=== PATIENT | female | born 1955 | race Caucasian/White ===

== ENCOUNTER → 2023-11-02 06:37 | Outpatient (REF) | payer OTHER, SELFPAY ==
[2023-11-02 10:18] LABS: INR 2.42; PT 26.8 Sec (11.4-14.6)
== END ==
LOC: HWLAB 06:37
PROVIDERS: ATTENDING PHYSICIAN Internal Medicine Cardiovascular Disease; FAMILY PHYSICIAN Family Medicine
DX: I48.0 Paroxysmal atrial fibrillation (principal); Z95.2 Presence of prosthetic heart valve
CPT/HCPCS: 36415; 85610

== ENCOUNTER → 2023-11-23 07:00 | Outpatient (REF) | payer OTHER, SELFPAY ==
[2023-11-23 09:10] LABS: INR 4.09; PT 39.7 Sec (11.4-14.6)
== END ==
LOC: HWLAB 07:00
PROVIDERS: ATTENDING PHYSICIAN Internal Medicine Cardiovascular Disease; FAMILY PHYSICIAN Family Medicine
DX: I48.0 Paroxysmal atrial fibrillation (principal)
CPT/HCPCS: 36415; 85610

== ENCOUNTER → 2023-12-01 06:13 | Outpatient (REF) | payer OTHER, SELFPAY ==
[2023-12-01 09:29] LABS: % Basophils 1.6 % (0-2); % Eosinophils 3.4 % (0-6); % Lymphocytes 34.2 % (20.5-51.1); % Monocytes 11.9 % (1.7-9.3); % Neutrophils 48.9 % (42.2-75.2); Absolute Basophils 0.1 10^3/uL (0-0.2); Absolute Eosinophils 0.2 10^3/uL (0-0.7); Absolute Lymphocytes 1.9 10^3/uL (1.2-3.4); Absolute Monocytes 0.7 10^3/uL (0.1-0.6); Absolute Neutrophils 2.8 10^3/uL (1.4-6.5); Hematocrit 38.1 % (37.0-47.0); Hemoglobin 13.1 g/dL (12.0-16.0); Mean Corp Hgb Conc. 34.4 g/dL (33.0-37.0); Mean Corpuscular Hgb 29.7 pg (27.0-31.0); Mean Corpuscular Volume 86.4 fL (81.0-99.0); Nucleated Red Blood Cells % 0 %; Platelet Count 239 10^3/uL (130-400); Red Blood Cell Count 4.41 10^6/uL (4.20-5.40); Red Cell Dist. Width 13.4 % (11.5-14.5); White Blood Cell Count 5.7 10^3/uL (4.8-10.8)
[2023-12-01 10:22] LABS: Albumin 3.6 g/dl (3.5-5.0); Blood Urea Nitrogen 15 mg/dl (7-17); Carbon Dioxide 30 mmol/L (22-30); Chloride 104 mmol/L (98-107); Glucose 117 mg/dl (70-99); HDL Cholesterol 48 mg/dl; LDL Cholesterol, Calculated 104 mg/dl; Potassium 3.7 mmol/L (3.5-5.1); Sodium 140 mmol/L (135-145); Total Cholesterol 185 mg/dl (50-199); Triglyceride 167 mg/dl (10-149); Very Low Density Lipoprotein 33 mg/dl (0-30); eGFR > 60.00
== END ==
LOC: HWLAB 06:13
PROVIDERS: ATTENDING PHYSICIAN Internal Medicine Cardiovascular Disease; FAMILY PHYSICIAN Family Medicine
DX: Z95.0 Presence of cardiac pacemaker (principal); E78.2 Mixed hyperlipidemia
CPT/HCPCS: 36415; 80061; 80069; 85025

== ENCOUNTER → 2023-12-06 06:28 | Day surgery (SDC) | payer OTHER, SELFPAY | LOC: GI 06:28 | PROVIDERS: ATTENDING PHYSICIAN Internal Medicine Gastroenterology; FAMILY PHYSICIAN Family Medicine | DX: R19.5 Other fecal abnormalities (principal); Z12.11 Encounter for screening for malignant neoplasm of colon; K55.20 Angiodysplasia of colon without hemorrhage; K63.5 Polyp of colon; D12.2 Benign neoplasm of ascending colon; D12.3 Benign neoplasm of transverse colon | CPT/HCPCS: 45385; 45380; 88305 ==

== ENCOUNTER → 2023-12-08 12:05 | Outpatient (REF) | payer OTHER, SELFPAY ==
[2023-12-08 13:22] LABS: INR 1.47; PT 17.9 Sec (11.4-14.6)
[2023-12-08 13:55] LABS: ALT (SGPT) 50 U/L (0-35); AST (SGOT) 52 U/L (14-36)
== END ==
LOC: REG 12:05
PROVIDERS: ATTENDING PHYSICIAN Internal Medicine Cardiovascular Disease; FAMILY PHYSICIAN Family Medicine
DX: I48.0 Paroxysmal atrial fibrillation (principal); E78.2 Mixed hyperlipidemia
CPT/HCPCS: 36415; 84450; 84460; 85610

== ENCOUNTER → 2023-12-10 13:10 | Outpatient (REF) | payer OTHER, SELFPAY ==
[2023-12-10 14:19] LABS: INR 1.71; PT 19.9 Sec (11.4-14.6)
== END ==
LOC: REG 13:10
PROVIDERS: ATTENDING PHYSICIAN Internal Medicine Cardiovascular Disease
DX: Z95.2 Presence of prosthetic heart valve (principal)
CPT/HCPCS: 36415; 85610

== ENCOUNTER → 2023-12-13 13:18 | Outpatient (REF) | payer OTHER, SELFPAY ==
[2023-12-13 16:37] LABS: INR 2.86; PT 29.9 Sec (11.4-14.6)
== END ==
LOC: HWLAB 13:18
PROVIDERS: ATTENDING PHYSICIAN Internal Medicine Cardiovascular Disease; FAMILY PHYSICIAN Family Medicine
DX: I48.0 Paroxysmal atrial fibrillation (principal)
CPT/HCPCS: 36415; 85610

== ENCOUNTER → 2023-12-20 10:06 | Outpatient (REF) | payer OTHER, SELFPAY ==
[2023-12-20 11:41] LABS: INR 3.13; PT 32.1 Sec (11.4-14.6)
== END ==
LOC: REG 10:06
PROVIDERS: ATTENDING PHYSICIAN Internal Medicine Cardiovascular Disease; FAMILY PHYSICIAN Family Medicine
DX: I48.0 Paroxysmal atrial fibrillation (principal)
CPT/HCPCS: 36415; 85610

== ENCOUNTER → 2023-12-20 14:34 | Outpatient (REF) | payer OTHER, SELFPAY | LOC: RAD 14:34 | PROVIDERS: ATTENDING PHYSICIAN Family Medicine; FAMILY PHYSICIAN Family Medicine | DX: R58 Hemorrhage, not elsewhere classified (principal) | CPT/HCPCS: 93971 ==

== ENCOUNTER → 2023-12-29 11:14 | Outpatient (REF) | payer OTHER, SELFPAY ==
[2023-12-29 16:30] LABS: INR 3.01; PT 31.6 Sec (11.4-14.6)
== END ==
LOC: HWLAB 11:14
PROVIDERS: ATTENDING PHYSICIAN Internal Medicine Cardiovascular Disease; FAMILY PHYSICIAN Family Medicine
DX: I48.0 Paroxysmal atrial fibrillation (principal)
CPT/HCPCS: 36415; 85610

== ENCOUNTER → 2024-01-12 06:26 | Outpatient (REF) | payer OTHER, SELFPAY ==
[2024-01-12 12:09] LABS: INR 2.71; PT 29.1 Sec (11.4-14.6)
== END ==
LOC: HWLAB 06:26
PROVIDERS: ATTENDING PHYSICIAN Internal Medicine Cardiovascular Disease; FAMILY PHYSICIAN Family Medicine
DX: Z95.2 Presence of prosthetic heart valve (principal)
CPT/HCPCS: 36415; 85610

== ENCOUNTER → 2024-01-26 06:26 | Outpatient (REF) | payer OTHER, SELFPAY ==
[2024-01-26 10:11] LABS: INR 4.64; PT 44.6 Sec (11.4-14.6)
== END ==
LOC: HWLAB 06:26
PROVIDERS: ATTENDING PHYSICIAN Internal Medicine Cardiovascular Disease; FAMILY PHYSICIAN Family Medicine
DX: I48.0 Paroxysmal atrial fibrillation (principal)
CPT/HCPCS: 36415; 85610

== ENCOUNTER → 2024-02-01 06:56 | Outpatient (REF) | payer OTHER, SELFPAY ==
[2024-02-01 09:20] LABS: INR 2.18; PT 24.1 Sec (11.4-14.6)
== END ==
LOC: HWLAB 06:56
PROVIDERS: ATTENDING PHYSICIAN Internal Medicine Cardiovascular Disease; FAMILY PHYSICIAN Family Medicine
DX: I48.0 Paroxysmal atrial fibrillation (principal)
CPT/HCPCS: 36415; 85610

== ENCOUNTER → 2024-02-09 11:36 | Outpatient (REF) | payer OTHER, SELFPAY ==
[2024-02-09 13:01] LABS: INR 3.27; PT 33.8 Sec (11.4-14.6)
== END ==
LOC: HWLAB 11:36
PROVIDERS: ATTENDING PHYSICIAN Internal Medicine Cardiovascular Disease; FAMILY PHYSICIAN Family Medicine
DX: I48.0 Paroxysmal atrial fibrillation (principal)
CPT/HCPCS: 36415; 85610

== ENCOUNTER → 2024-02-17 13:41 | Outpatient (REF) | payer OTHER, SELFPAY ==
[2024-02-17 16:20] LABS: INR 2.97; PT 31.3 Sec (11.4-14.6)
== END ==
LOC: HWLAB 13:41
PROVIDERS: ATTENDING PHYSICIAN Internal Medicine Cardiovascular Disease; FAMILY PHYSICIAN Family Medicine
DX: I48.0 Paroxysmal atrial fibrillation (principal)
CPT/HCPCS: 36415; 85610

== ENCOUNTER → 2024-02-24 12:03 | Outpatient (REF) | payer OTHER, SELFPAY ==
[2024-02-24 16:31] LABS: INR 2.65; PT 28.6 Sec (11.4-14.6)
== END ==
LOC: HWLAB 12:03
PROVIDERS: ATTENDING PHYSICIAN Internal Medicine Cardiovascular Disease; FAMILY PHYSICIAN Family Medicine
DX: Z95.2 Presence of prosthetic heart valve (principal)
CPT/HCPCS: 36415; 85610

== ENCOUNTER → 2024-03-24 07:50 | Outpatient (REF) | payer OTHER, SELFPAY ==
[2024-03-24 10:16] LABS: INR 2.46; PT 26.5 Sec (11.4-14.6)
[2024-03-24 10:34] LABS: ALT (SGPT) 35 U/L (0-35); AST (SGOT) 45 U/L (14-36)
== END ==
LOC: HWLAB 07:50
PROVIDERS: ATTENDING PHYSICIAN Internal Medicine Cardiovascular Disease; FAMILY PHYSICIAN Family Medicine
DX: Z95.2 Presence of prosthetic heart valve (principal); E78.2 Mixed hyperlipidemia
CPT/HCPCS: 36415; 84450; 84460; 85610

== ENCOUNTER → 2024-03-31 12:14 | Outpatient (REF) | payer OTHER, SELFPAY ==
[2024-03-31 15:26] LABS: PT 30.3 Sec (11.4-14.6)
== END ==
LOC: HWLAB 12:14
PROVIDERS: ATTENDING PHYSICIAN Internal Medicine Cardiovascular Disease; FAMILY PHYSICIAN Family Medicine
DX: Z95.2 Presence of prosthetic heart valve (principal)
CPT/HCPCS: 36415; 85610

== ENCOUNTER → 2024-04-07 10:38 | Outpatient (REF) | payer OTHER, SELFPAY ==
[2024-04-07 11:54] LABS: PT 40.6 Sec (11.4-14.6)
== END ==
LOC: HWLAB 10:38
PROVIDERS: ATTENDING PHYSICIAN Internal Medicine Cardiovascular Disease; FAMILY PHYSICIAN Family Medicine
DX: Z95.2 Presence of prosthetic heart valve (principal)
CPT/HCPCS: 36415; 85610

== ENCOUNTER → 2024-04-14 10:52 | Outpatient (REF) | payer OTHER, SELFPAY ==
[2024-04-14 15:23] LABS: INR 5.19
== END ==
LOC: HWLAB 10:52
PROVIDERS: ATTENDING PHYSICIAN Internal Medicine Cardiovascular Disease; FAMILY PHYSICIAN Family Medicine
DX: Z95.2 Presence of prosthetic heart valve (principal)
CPT/HCPCS: 36415; 85610

== ENCOUNTER → 2024-04-17 06:47 | Outpatient (REF) | payer OTHER, SELFPAY ==
[2024-04-17 10:19] LABS: INR 3.58; PT 35.8 Sec (11.4-14.6)
== END ==
LOC: HWLAB 06:47
PROVIDERS: ATTENDING PHYSICIAN Internal Medicine Cardiovascular Disease; FAMILY PHYSICIAN Family Medicine
DX: Z95.2 Presence of prosthetic heart valve (principal)
CPT/HCPCS: 36415; 85610

== ENCOUNTER → 2024-04-24 12:05 | Outpatient (REF) | payer OTHER, SELFPAY ==
[2024-04-24 15:45] LABS: INR 3.45; PT 34.7 Sec (11.4-14.6)
== END ==
LOC: HWLAB 12:05
PROVIDERS: ATTENDING PHYSICIAN Internal Medicine Cardiovascular Disease; FAMILY PHYSICIAN Family Medicine
DX: Z95.2 Presence of prosthetic heart valve (principal)
CPT/HCPCS: 36415; 85610

== ENCOUNTER → 2024-05-01 11:28 | Outpatient (REF) | payer OTHER, SELFPAY ==
[2024-05-01 16:29] LABS: INR 2.91; PT 30.3 Sec (11.4-14.6)
== END ==
LOC: HWLAB 11:28
PROVIDERS: ATTENDING PHYSICIAN Internal Medicine Cardiovascular Disease; FAMILY PHYSICIAN Family Medicine
DX: Z95.2 Presence of prosthetic heart valve (principal)
CPT/HCPCS: 36415; 85610

== ENCOUNTER → 2024-05-10 11:59 | Outpatient (REF) | payer OTHER, SELFPAY ==
[2024-05-10 16:15] LABS: INR 2.31; PT 25.6 Sec (11.4-14.6)
== END ==
LOC: HWLAB 11:59
PROVIDERS: ATTENDING PHYSICIAN Internal Medicine Cardiovascular Disease; FAMILY PHYSICIAN Family Medicine
DX: Z95.2 Presence of prosthetic heart valve (principal)
CPT/HCPCS: 36415; 85610

== ENCOUNTER → 2024-05-19 11:46 | Outpatient (REF) | payer OTHER, SELFPAY ==
[2024-05-19 16:41] LABS: INR 2.95; PT 30.7 Sec (11.4-14.6)
== END ==
LOC: HWLAB 11:46
PROVIDERS: ATTENDING PHYSICIAN Internal Medicine Cardiovascular Disease; FAMILY PHYSICIAN Family Medicine
DX: Z95.2 Presence of prosthetic heart valve (principal)
CPT/HCPCS: 36415; 85610

== ENCOUNTER → 2024-06-16 09:10 | Outpatient (REF) | payer OTHER, SELFPAY | LOC: HWRCS 09:10 | PROVIDERS: ATTENDING PHYSICIAN Internal Medicine Cardiovascular Disease; FAMILY PHYSICIAN Family Medicine | DX: Z95.0 Presence of cardiac pacemaker (principal); Z95.2 Presence of prosthetic heart valve; I48.21 Permanent atrial fibrillation | CPT/HCPCS: 93306 ==

== ENCOUNTER → 2024-06-21 11:59 | Outpatient (REF) | payer OTHER, SELFPAY ==
[2024-06-21 16:17] LABS: INR 2.33; PT 25.8 Sec (11.4-14.6)
== END ==
LOC: HWLAB 11:59
PROVIDERS: ATTENDING PHYSICIAN Internal Medicine Cardiovascular Disease; FAMILY PHYSICIAN Family Medicine
DX: Z95.2 Presence of prosthetic heart valve (principal)
CPT/HCPCS: 36415; 85610

== ENCOUNTER → 2024-06-29 12:14 | Outpatient (REF) | payer OTHER, SELFPAY ==
[2024-06-29 16:45] LABS: INR 2.58
== END ==
LOC: HWLAB 12:14
PROVIDERS: ATTENDING PHYSICIAN Internal Medicine Cardiovascular Disease; FAMILY PHYSICIAN Family Medicine
DX: Z95.2 Presence of prosthetic heart valve (principal)
CPT/HCPCS: 36415; 85610

== ENCOUNTER → 2024-07-03 06:50 | Outpatient (REF) | payer OTHER, SELFPAY | LOC: HWWDC 06:50 | PROVIDERS: ATTENDING PHYSICIAN Obstetrics & Gynecology; FAMILY PHYSICIAN Family Medicine | DX: Z12.31 Encounter for screening mammogram for malignant neoplasm of breast (principal) | CPT/HCPCS: 77063; 77067 ==

== ENCOUNTER → 2024-07-14 11:51 | Outpatient (REF) | payer OTHER, SELFPAY ==
[2024-07-14 15:29] LABS: INR 3.37; PT 34.1 Sec (11.4-14.6)
== END ==
LOC: HWLAB 11:51
PROVIDERS: ATTENDING PHYSICIAN Internal Medicine Cardiovascular Disease; FAMILY PHYSICIAN Family Medicine
DX: Z95.2 Presence of prosthetic heart valve (principal)
CPT/HCPCS: 36415; 85610

== ENCOUNTER → 2024-07-26 11:26 | Outpatient (REF) | payer OTHER, SELFPAY ==
[2024-07-26 15:31] LABS: INR 2.13; PT 24.1 Sec (11.4-14.6)
== END ==
LOC: HWLAB 11:26
PROVIDERS: ATTENDING PHYSICIAN Internal Medicine Cardiovascular Disease; FAMILY PHYSICIAN Family Medicine
DX: Z95.4 Presence of other heart-valve replacement (principal)
CPT/HCPCS: 36415; 85610

== ENCOUNTER → 2024-08-01 12:51 | Outpatient (REF) | payer OTHER, SELFPAY ==
[2024-08-01 15:52] LABS: INR 2.84; PT 29.8 Sec (11.4-14.6)
== END ==
LOC: HWLAB 12:51
PROVIDERS: ATTENDING PHYSICIAN Internal Medicine Cardiovascular Disease; FAMILY PHYSICIAN Family Medicine
DX: Z95.4 Presence of other heart-valve replacement (principal)
CPT/HCPCS: 36415; 85610

== ENCOUNTER → 2024-08-08 07:17 | Outpatient (REF) | payer OTHER, SELFPAY ==
[2024-08-08 10:24] LABS: PT 26.1 Sec (11.4-14.6)
== END ==
LOC: HWLAB 07:17
PROVIDERS: ATTENDING PHYSICIAN Internal Medicine Cardiovascular Disease; FAMILY PHYSICIAN Family Medicine
DX: Z95.4 Presence of other heart-valve replacement (principal)
CPT/HCPCS: 36415; 85610

== ENCOUNTER → 2024-08-16 11:34 | Outpatient (REF) | payer OTHER, SELFPAY ==
[2024-08-16 16:12] LABS: INR 2.14; PT 24.4 Sec (11.4-14.6)
== END ==
LOC: HWLAB 11:34
PROVIDERS: ATTENDING PHYSICIAN Internal Medicine Cardiovascular Disease; FAMILY PHYSICIAN Family Medicine
DX: Z95.4 Presence of other heart-valve replacement (principal)
CPT/HCPCS: 36415; 85610

== ENCOUNTER → 2024-09-05 12:04 | Outpatient (REF) | payer OTHER, SELFPAY ==
[2024-09-05 17:16] LABS: PT 51.6 Sec (11.4-14.6)
[2024-09-05 18:00] LABS: INR 5.88
== END ==
LOC: HWLAB 12:04
PROVIDERS: ATTENDING PHYSICIAN Internal Medicine Cardiovascular Disease; FAMILY PHYSICIAN Family Medicine
DX: Z95.4 Presence of other heart-valve replacement (principal)
CPT/HCPCS: 36415; 85610

== ENCOUNTER → 2024-09-11 11:47 | Outpatient (REF) | payer OTHER, SELFPAY ==
[2024-09-11 16:04] LABS: INR 5.22; PT 47.2 Sec (11.4-14.6)
== END ==
LOC: HWLAB 11:47
PROVIDERS: ATTENDING PHYSICIAN Internal Medicine Cardiovascular Disease; FAMILY PHYSICIAN Family Medicine
DX: Z95.4 Presence of other heart-valve replacement (principal); I48.0 Paroxysmal atrial fibrillation
CPT/HCPCS: 36415; 85610

== ENCOUNTER → 2024-09-15 12:17 | Outpatient (REF) | payer OTHER, SELFPAY ==
[2024-09-15 16:26] LABS: INR 2.28; PT 25.2 Sec (11.4-14.6)
== END ==
LOC: HWLAB 12:17
PROVIDERS: ATTENDING PHYSICIAN Internal Medicine Cardiovascular Disease
DX: Z95.4 Presence of other heart-valve replacement (principal); I48.0 Paroxysmal atrial fibrillation
CPT/HCPCS: 36415; 85610

== ENCOUNTER → 2024-09-21 11:27 | Outpatient (REF) | payer OTHER, SELFPAY ==
[2024-09-21 15:39] LABS: INR 2.58; PT 28.1 Sec (11.4-14.6)
== END ==
LOC: HWLAB 11:27
PROVIDERS: ATTENDING PHYSICIAN Internal Medicine Cardiovascular Disease; FAMILY PHYSICIAN Family Medicine
DX: Z95.4 Presence of other heart-valve replacement (principal); I48.0 Paroxysmal atrial fibrillation
CPT/HCPCS: 36415; 85610

== ENCOUNTER → 2024-10-02 11:01 | Outpatient (REF) | payer OTHER, SELFPAY ==
[2024-10-02 16:05] LABS: INR 3.68; PT 36.7 Sec (11.4-14.6)
== END ==
LOC: HWLAB 11:01
PROVIDERS: ATTENDING PHYSICIAN Internal Medicine Cardiovascular Disease; FAMILY PHYSICIAN Family Medicine
DX: Z95.4 Presence of other heart-valve replacement (principal); I48.0 Paroxysmal atrial fibrillation
CPT/HCPCS: 36415; 85610

== ENCOUNTER → 2024-10-17 06:57 | Outpatient (REF) | payer OTHER, SELFPAY ==
[2024-10-17 09:46] LABS: PT 21.1 Sec (11.4-14.6)
== END ==
LOC: HWLAB 06:57
PROVIDERS: ATTENDING PHYSICIAN Internal Medicine Cardiovascular Disease; FAMILY PHYSICIAN Family Medicine
DX: Z95.4 Presence of other heart-valve replacement (principal); I48.0 Paroxysmal atrial fibrillation
CPT/HCPCS: 36415; 85610

== ENCOUNTER → 2024-10-20 10:46 | Outpatient (REF) | payer OTHER, SELFPAY ==
[2024-10-20 12:42] LABS: INR 3.53; PT 35.1 Sec (11.4-14.6)
== END ==
LOC: HWLAB 10:46
PROVIDERS: ATTENDING PHYSICIAN Internal Medicine Cardiovascular Disease; FAMILY PHYSICIAN Family Medicine
DX: Z95.2 Presence of prosthetic heart valve (principal)
CPT/HCPCS: 36415; 85610

== ENCOUNTER → 2024-10-24 11:21 | Outpatient (REF) | payer OTHER, SELFPAY ==
[2024-10-24 15:40] LABS: INR 4.25; PT 40.4 Sec (11.4-14.6)
== END ==
LOC: HWLAB 11:21
PROVIDERS: ATTENDING PHYSICIAN Internal Medicine Cardiovascular Disease; FAMILY PHYSICIAN Family Medicine
DX: Z95.2 Presence of prosthetic heart valve (principal)
CPT/HCPCS: 36415; 85610

== ENCOUNTER → 2024-11-01 07:20 | Outpatient (REF) | payer OTHER, SELFPAY ==
[2024-11-01 10:00] LABS: INR 3.35; PT 34.2 Sec (11.4-14.6)
== END ==
LOC: HWLAB 07:20
PROVIDERS: ATTENDING PHYSICIAN Internal Medicine Cardiovascular Disease; FAMILY PHYSICIAN Family Medicine
DX: Z95.2 Presence of prosthetic heart valve (principal)
CPT/HCPCS: 36415; 85610

== ENCOUNTER → 2024-11-08 11:30 | Outpatient (REF) | payer OTHER, SELFPAY ==
[2024-11-08 15:55] LABS: PT 26.6 Sec (11.4-14.6)
== END ==
LOC: HWLAB 11:30
PROVIDERS: ATTENDING PHYSICIAN Internal Medicine Cardiovascular Disease; FAMILY PHYSICIAN Family Medicine
DX: Z95.2 Presence of prosthetic heart valve (principal)
CPT/HCPCS: 36415; 85610

== ENCOUNTER → 2024-11-09 12:53 | Outpatient (REF) | payer OTHER, SELFPAY | LOC: HWRAD 12:53 | PROVIDERS: ATTENDING PHYSICIAN Obstetrics & Gynecology; FAMILY PHYSICIAN Family Medicine | DX: Z78.0 Asymptomatic menopausal state (principal) | CPT/HCPCS: 77080 ==

== ENCOUNTER → 2024-11-15 13:00 | Outpatient (REF) | payer OTHER, SELFPAY ==
[2024-11-15 16:49] LABS: INR 2.78; PT 29.8 Sec (11.4-14.6)
== END ==
LOC: HWLAB 13:00
PROVIDERS: ATTENDING PHYSICIAN Internal Medicine Cardiovascular Disease; FAMILY PHYSICIAN Family Medicine
DX: Z95.2 Presence of prosthetic heart valve (principal)
CPT/HCPCS: 36415; 85610

== ENCOUNTER → 2024-11-22 12:58 | Outpatient (REF) | payer OTHER, SELFPAY ==
[2024-11-22 15:28] LABS: INR 3.28; PT 33.7 Sec (11.4-14.6)
== END ==
LOC: HWLAB 12:58
PROVIDERS: ATTENDING PHYSICIAN Internal Medicine Cardiovascular Disease; FAMILY PHYSICIAN Family Medicine
DX: Z95.2 Presence of prosthetic heart valve (principal)
CPT/HCPCS: 36415; 85610

== ENCOUNTER → 2024-11-27 13:41 | Outpatient (REF) | payer OTHER, SELFPAY | LOC: MRI 13:41 | PROVIDERS: ATTENDING PHYSICIAN Specialist; FAMILY PHYSICIAN Family Medicine | DX: M54.16 Radiculopathy, lumbar region (principal); M54.50 Low back pain, unspecified | CPT/HCPCS: 72148 ==

== ENCOUNTER → 2024-11-29 11:52 | Outpatient (REF) | payer OTHER, SELFPAY ==
[2024-11-29 14:00] LABS: INR 3.16; PT 32.8 Sec (11.4-14.6)
== END ==
LOC: HWLAB 11:52
PROVIDERS: ATTENDING PHYSICIAN Internal Medicine Cardiovascular Disease; FAMILY PHYSICIAN Family Medicine
DX: I48.0 Paroxysmal atrial fibrillation (principal)
CPT/HCPCS: 85610

== ENCOUNTER → 2024-12-05 06:42 | Outpatient (REF) | payer OTHER, SELFPAY ==
[2024-12-05 10:05] LABS: INR 2.57; PT 27.6 Sec (11.4-14.6)
== END ==
LOC: HWLAB 06:42
PROVIDERS: ATTENDING PHYSICIAN Internal Medicine Cardiovascular Disease; FAMILY PHYSICIAN Family Medicine
DX: I48.0 Paroxysmal atrial fibrillation (principal)
CPT/HCPCS: 36415; 85610

== ENCOUNTER 2024-12-08 06:23 | Day surgery (SDC) | payer OTHER, SELFPAY | END 2024-12-08 08:34 | disposition home or self-care (01) | LOC: GI 06:23 | PROVIDERS: ATTENDING PHYSICIAN Internal Medicine Gastroenterology | DX: Z12.11 Encounter for screening for malignant neoplasm of colon (principal); K63.5 Polyp of colon; K55.20 Angiodysplasia of colon without hemorrhage; Z86.0101 Personal history of adenomatous and serrated colon polyps; Z98.890 Other specified postprocedural states; Z79.01 Long term (current) use of anticoagulants | CPT/HCPCS: 45385; 88305 ==

== ENCOUNTER → 2024-12-11 08:25 | Outpatient (REF) | payer OTHER, SELFPAY ==
[2024-12-11 09:55] LABS: INR 1.47; PT 18.1 Sec (11.4-14.6)
== END ==
LOC: HWLAB 08:25
PROVIDERS: ATTENDING PHYSICIAN Internal Medicine Cardiovascular Disease; FAMILY PHYSICIAN Family Medicine
DX: I48.0 Paroxysmal atrial fibrillation (principal)
CPT/HCPCS: 36415; 85610

== ENCOUNTER → 2024-12-13 11:40 | Outpatient (REF) | payer OTHER, SELFPAY ==
[2024-12-13 16:58] LABS: PT 22.3 Sec (11.4-14.6)
== END ==
LOC: HWLAB 11:40
PROVIDERS: ATTENDING PHYSICIAN Internal Medicine Cardiovascular Disease; FAMILY PHYSICIAN Family Medicine
DX: I48.0 Paroxysmal atrial fibrillation (principal)
CPT/HCPCS: 36415; 85610

== ENCOUNTER → 2024-12-15 06:27 | Outpatient (REF) | payer OTHER, SELFPAY ==
[2024-12-15 09:48] LABS: INR 2.39; PT 26.1 Sec (11.4-14.6)
== END ==
LOC: HWLAB 06:27
PROVIDERS: ATTENDING PHYSICIAN Internal Medicine Cardiovascular Disease; FAMILY PHYSICIAN Family Medicine
DX: I48.0 Paroxysmal atrial fibrillation (principal)
CPT/HCPCS: 36415; 85610

== ENCOUNTER → 2024-12-20 06:48 | Outpatient (REF) | payer OTHER, SELFPAY ==
[2024-12-20 10:08] LABS: INR 2.75; PT 29.5 Sec (11.4-14.6)
== END ==
LOC: HWLAB 06:48
PROVIDERS: ATTENDING PHYSICIAN Internal Medicine Cardiovascular Disease; FAMILY PHYSICIAN Family Medicine
DX: I48.0 Paroxysmal atrial fibrillation (principal)
CPT/HCPCS: 36415; 85610

== ENCOUNTER → 2024-12-26 07:12 | Outpatient (REF) | payer OTHER, SELFPAY ==
[2024-12-26 09:36] LABS: INR 2.38
== END ==
LOC: HWLAB 07:12
PROVIDERS: ATTENDING PHYSICIAN Internal Medicine Cardiovascular Disease; FAMILY PHYSICIAN Family Medicine
DX: I48.0 Paroxysmal atrial fibrillation (principal)
CPT/HCPCS: 36415; 85610

== ENCOUNTER → 2025-01-01 12:17 | Outpatient (REF) | payer OTHER, SELFPAY ==
[2025-01-01 15:31] LABS: INR 4.02; PT 38.8 Sec (11.4-14.6)
== END ==
LOC: HWLAB 12:17
PROVIDERS: ATTENDING PHYSICIAN Internal Medicine Cardiovascular Disease; FAMILY PHYSICIAN Family Medicine
DX: I48.0 Paroxysmal atrial fibrillation (principal)
CPT/HCPCS: 36415; 85610

== ENCOUNTER → 2025-01-10 12:08 | Outpatient (REF) | payer OTHER, SELFPAY ==
[2025-01-10 16:49] LABS: INR 1.95; PT 22.8 Sec (11.4-14.6)
== END ==
LOC: HWLAB 12:08
PROVIDERS: ATTENDING PHYSICIAN Internal Medicine Cardiovascular Disease; FAMILY PHYSICIAN Family Medicine
DX: I48.0 Paroxysmal atrial fibrillation (principal)
CPT/HCPCS: 36415; 85610

== ENCOUNTER → 2025-01-17 12:19 | Outpatient (REF) | payer OTHER, SELFPAY ==
[2025-01-17 15:53] LABS: INR 4.17; PT 40.4 Sec (11.4-14.6)
== END ==
LOC: HWLAB 12:19
PROVIDERS: ATTENDING PHYSICIAN Internal Medicine Cardiovascular Disease; FAMILY PHYSICIAN Family Medicine
DX: I48.0 Paroxysmal atrial fibrillation (principal)
CPT/HCPCS: 36415; 85610

== ENCOUNTER → 2025-01-24 11:53 | Outpatient (REF) | payer OTHER, SELFPAY ==
[2025-01-24 16:12] LABS: INR 3.29; PT 33.8 Sec (11.4-14.6)
== END ==
LOC: HWLAB 11:53
PROVIDERS: ATTENDING PHYSICIAN Internal Medicine Cardiovascular Disease; FAMILY PHYSICIAN Family Medicine
DX: I48.0 Paroxysmal atrial fibrillation (principal)
CPT/HCPCS: 36415; 85610

== ENCOUNTER → 2025-02-07 07:03 | Outpatient (REF) | payer OTHER, SELFPAY ==
[2025-02-07 09:42] LABS: % Basophils 1.3 % (0-2); % Eosinophils 3.4 % (0-6); % Immature Granulocytes 0.2 % (0-0.5); % Lymphocytes 23.7 % (20.5-51.1); % Monocytes 10.5 % (1.7-9.3); % Neutrophils 60.9 % (42.2-75.2); Absolute Basophils 0.1 10^3/uL (0-0.2); Absolute Eosinophils 0.2 10^3/uL (0-0.7); Absolute Lymphocytes 1.3 10^3/uL (1.2-3.4); Absolute Monocytes 0.6 10^3/uL (0.1-0.6); Absolute Neutrophils 3.3 10^3/uL (1.4-6.5); Hematocrit 39.3 % (37.0-47.0); Hemoglobin 13.4 g/dL (12.0-16.0); Mean Corp Hgb Conc. 34.1 g/dL (33.0-37.0); Mean Corpuscular Hgb 30.2 pg (27.0-31.0); Mean Corpuscular Volume 88.5 fL (81.0-99.0); Nucleated Red Blood Cells % 0 %; Platelet Count 224 10^3/uL (130-400); Red Blood Cell Count 4.44 10^6/uL (4.20-5.40); Red Cell Dist. Width 14.3 % (11.5-14.5); White Blood Cell Count 5.4 10^3/uL (4.8-10.8)
[2025-02-07 09:50] LABS: INR 2.33
[2025-02-07 10:31] LABS: ALT (SGPT) 26 U/L (0-35); AST (SGOT) 23 U/L (14-36); Alkaline Phosphatase 100 U/L (38-126); Blood Urea Nitrogen 15 mg/dl (7-17); Calcium 8.8 mg/dl (8.4-10.2); Carbon Dioxide 30 mmol/L (22-30); Chloride 105 mmol/L (98-107); Glucose 110 mg/dl (70-99); HDL Cholesterol 45 mg/dl; LDL Cholesterol, Calculated 115 mg/dl; Potassium 3.9 mmol/L (3.5-5.1); Sodium 143 mmol/L (135-145); Total Cholesterol 185 mg/dl (50-199); Total Protein 6.4 g/dl (6.3-8.2); Triglyceride 126 mg/dl (10-149); Very Low Density Lipoprotein 25 mg/dl (0-30); eGFR > 60.00
== END ==
LOC: HWLAB 07:03
PROVIDERS: ATTENDING PHYSICIAN Internal Medicine Cardiovascular Disease; FAMILY PHYSICIAN Family Medicine
DX: Z95.0 Presence of cardiac pacemaker (principal); I48.0 Paroxysmal atrial fibrillation; I48.21 Permanent atrial fibrillation; I25.10 Atherosclerotic heart disease of native coronary artery without angina pectoris
CPT/HCPCS: 36415; 80053; 80061; 85025; 85610

== ENCOUNTER → 2025-02-16 11:36 | Outpatient (REF) | payer OTHER, SELFPAY ==
[2025-02-16 15:48] LABS: INR 2.58; PT 27.6 Sec (11.4-14.6)
== END ==
LOC: HWLAB 11:36
PROVIDERS: ATTENDING PHYSICIAN Internal Medicine Cardiovascular Disease; FAMILY PHYSICIAN Family Medicine
DX: Z95.4 Presence of other heart-valve replacement (principal)
CPT/HCPCS: 36415; 85610

== ENCOUNTER → 2025-02-23 11:53 | Outpatient (REF) | payer OTHER, SELFPAY ==
[2025-02-23 16:12] LABS: INR 3.13
== END ==
LOC: HWLAB 11:53
PROVIDERS: ATTENDING PHYSICIAN Internal Medicine Cardiovascular Disease; FAMILY PHYSICIAN Family Medicine
DX: Z95.4 Presence of other heart-valve replacement (principal)
CPT/HCPCS: 36415; 85610

== ENCOUNTER → 2025-03-02 07:33 | Outpatient (REF) | payer OTHER, SELFPAY ==
[2025-03-02 10:19] LABS: INR 3.48; PT 34.7 Sec (11.4-14.6)
== END ==
LOC: HWLAB 07:33
PROVIDERS: ATTENDING PHYSICIAN Internal Medicine Cardiovascular Disease; FAMILY PHYSICIAN Family Medicine
DX: Z95.4 Presence of other heart-valve replacement (principal)
CPT/HCPCS: 36415; 85610

== ENCOUNTER → 2025-03-09 10:57 | Outpatient (REF) | payer OTHER, SELFPAY ==
[2025-03-09 12:21] LABS: INR 4.35; PT 41.1 Sec (11.4-14.6)
== END ==
LOC: REG 10:57
PROVIDERS: ATTENDING PHYSICIAN Internal Medicine Cardiovascular Disease; FAMILY PHYSICIAN Family Medicine
DX: I48.0 Paroxysmal atrial fibrillation (principal)
CPT/HCPCS: 36415; 85610

== ENCOUNTER → 2025-03-21 07:15 | Outpatient (REF) | payer OTHER, SELFPAY ==
[2025-03-21 10:05] LABS: INR 2.63; PT 28.5 Sec (11.4-14.6)
== END ==
LOC: HWLAB 07:15
PROVIDERS: ATTENDING PHYSICIAN Internal Medicine Cardiovascular Disease; FAMILY PHYSICIAN Family Medicine
DX: Z95.4 Presence of other heart-valve replacement (principal)
CPT/HCPCS: 36415; 85610

== ENCOUNTER → 2025-04-04 07:51 | Outpatient (REF) | payer OTHER, SELFPAY ==
[2025-04-04 09:42] LABS: Hematocrit 40.2 % (37.0-47.0); Hemoglobin 13.5 g/dL (12.0-16.0); Mean Corp Hgb Conc. 33.6 g/dL (33.0-37.0); Mean Corpuscular Volume 88.4 fL (81.0-99.0); Nucleated Red Blood Cells % 0 %; Platelet Count 227 10^3/uL (130-400); Red Cell Dist. Width 13.4 % (11.5-14.5)
[2025-04-04 09:51] LABS: INR 1.91; PT 22.4 Sec (11.4-14.6)
[2025-04-04 10:18] LABS: C-Reactive Protein 10.60 mg/L (0.0-10.00)
[2025-04-04 10:53] LABS: Ferritin 50.6 ng/ml (11.1-264.0)
[2025-04-04 11:52] LABS: Rheumatoid Agglutinin Less Than 10 IU (<10 IU)
[2025-04-04 13:41] LABS: Lyme Antibody Screen, EIA Negative (Negative)
[2025-04-06 01:49] LABS: CCP Antibody IgG/IgA 2 Units (0-19)
[2025-04-06 06:27] LABS: ANA, IgG Reflex to HEp-2 None Detected (None Detected)
== END ==
LOC: HWLAB 07:51
PROVIDERS: ATTENDING PHYSICIAN Student in an Organized Health Care Education/Training Program; FAMILY PHYSICIAN Family Medicine; REFERRING PHYSICIAN Internal Medicine Cardiovascular Disease
DX: M25.531 Pain in right wrist (principal); Z95.4 Presence of other heart-valve replacement
CPT/HCPCS: 36415; 82728; 85025; 85610; 85652; 86038; 86140; 86200; 86430; 86618

== ENCOUNTER → 2025-04-25 09:54 | Outpatient (REF) | payer OTHER, SELFPAY ==
[2025-04-25 11:51] LABS: INR 1.63; PT 19.8 Sec (11.4-14.6)
== END ==
LOC: HWLAB 09:54
PROVIDERS: ATTENDING PHYSICIAN Internal Medicine Cardiovascular Disease; FAMILY PHYSICIAN Family Medicine
DX: Z95.4 Presence of other heart-valve replacement (principal)
CPT/HCPCS: 36415; 85610

== ENCOUNTER → 2025-04-26 12:22 | Outpatient (REF) | payer OTHER, SELFPAY ==
[2025-04-26 13:09] LABS: INR 1.86; PT 21.9 Sec (11.4-14.6)
== END ==
LOC: REG 12:22
PROVIDERS: ATTENDING PHYSICIAN Internal Medicine Cardiovascular Disease; FAMILY PHYSICIAN Family Medicine
DX: Z95.4 Presence of other heart-valve replacement (principal)
CPT/HCPCS: 36415; 85610

== ENCOUNTER → 2025-04-27 11:30 | Outpatient (REF) | payer OTHER, SELFPAY ==
[2025-04-27 12:12] LABS: INR 2.51; PT 27.1 Sec (11.4-14.6)
== END ==
LOC: REG 11:30
PROVIDERS: ATTENDING PHYSICIAN Internal Medicine Cardiovascular Disease; FAMILY PHYSICIAN Family Medicine
DX: Z95.4 Presence of other heart-valve replacement (principal)
CPT/HCPCS: 36415; 85610

== ENCOUNTER → 2025-04-30 09:59 | Outpatient (REF) | payer OTHER, SELFPAY ==
[2025-04-30 13:08] LABS: INR 2.55; PT 27.9 Sec (11.4-14.6)
== END ==
LOC: HWLAB 09:59
PROVIDERS: ATTENDING PHYSICIAN Internal Medicine Cardiovascular Disease; FAMILY PHYSICIAN Family Medicine
DX: Z95.4 Presence of other heart-valve replacement (principal)
CPT/HCPCS: 36415; 85610

== ENCOUNTER → 2025-05-04 11:26 | Outpatient (REF) | payer OTHER, SELFPAY ==
[2025-05-04 15:35] LABS: INR 3.50; PT 34.9 Sec (11.4-14.6)
== END ==
LOC: HWLAB 11:26
PROVIDERS: ATTENDING PHYSICIAN Internal Medicine Cardiovascular Disease; FAMILY PHYSICIAN Family Medicine
DX: Z95.4 Presence of other heart-valve replacement (principal); Z95.2 Presence of prosthetic heart valve
CPT/HCPCS: 36415; 85610

== ENCOUNTER → 2025-05-09 11:28 | Outpatient (REF) | payer OTHER, SELFPAY ==
[2025-05-09 13:58] LABS: INR 4.51; PT 42.9 Sec (11.4-14.6)
== END ==
LOC: HWLAB 11:28
PROVIDERS: ATTENDING PHYSICIAN Internal Medicine Cardiovascular Disease; FAMILY PHYSICIAN Family Medicine
DX: Z95.4 Presence of other heart-valve replacement (principal); Z95.2 Presence of prosthetic heart valve
CPT/HCPCS: 36415; 85610

== ENCOUNTER → 2025-05-22 06:15 | Outpatient (REF) | payer OTHER, SELFPAY ==
[2025-05-22 10:20] LABS: ALT (SGPT) 37 U/L (0-35); AST (SGOT) 33 U/L (14-36); HDL Cholesterol 45 mg/dl; LDL Cholesterol, Calculated 95 mg/dl; Very Low Density Lipoprotein 22 mg/dl (0-30)
[2025-05-22 10:30] LABS: INR 2.47; PT 26.8 Sec (11.4-14.6)
== END ==
LOC: HWLAB 06:15
PROVIDERS: ATTENDING PHYSICIAN Internal Medicine Cardiovascular Disease; FAMILY PHYSICIAN Family Medicine
DX: Z95.4 Presence of other heart-valve replacement (principal); E78.2 Mixed hyperlipidemia; I50.1 Left ventricular failure, unspecified
CPT/HCPCS: 36415; 80061; 84450; 84460; 85610

== ENCOUNTER → 2025-06-07 07:50 | Outpatient (REF) | payer OTHER, SELFPAY ==
[2025-06-07 10:03] LABS: INR 2.93; PT 31.0 Sec (11.4-14.6)
== END ==
LOC: HWLAB 07:50
PROVIDERS: ATTENDING PHYSICIAN Internal Medicine Cardiovascular Disease; FAMILY PHYSICIAN Family Medicine
DX: Z95.4 Presence of other heart-valve replacement (principal); Z95.2 Presence of prosthetic heart valve
CPT/HCPCS: 36415; 85610

== ENCOUNTER → 2025-06-20 11:14 | Outpatient (REF) | payer OTHER, SELFPAY ==
[2025-06-20 16:33] LABS: INR 3.18; PT 32.9 Sec (11.4-14.6)
== END ==
LOC: HWLAB 11:14
PROVIDERS: ATTENDING PHYSICIAN Internal Medicine Cardiovascular Disease; FAMILY PHYSICIAN Family Medicine
DX: Z95.4 Presence of other heart-valve replacement (principal); Z95.2 Presence of prosthetic heart valve
CPT/HCPCS: 36415; 85610

== ENCOUNTER → 2025-06-29 11:54 | Outpatient (REF) | payer OTHER, SELFPAY ==
[2025-06-29 16:01] LABS: INR 2.39; PT 26.1 Sec (11.4-14.6)
== END ==
LOC: HWLAB 11:54
PROVIDERS: ATTENDING PHYSICIAN Internal Medicine Cardiovascular Disease; FAMILY PHYSICIAN Family Medicine
DX: Z95.4 Presence of other heart-valve replacement (principal); Z95.2 Presence of prosthetic heart valve
CPT/HCPCS: 36415; 85610

== ENCOUNTER 2025-07-03 07:29 | Outpatient (RCR) | payer OTHER, SELFPAY | END 2025-07-03 23:59 | disposition home or self-care (01) | LOC: RPT 07:29 | PROVIDERS: ATTENDING PHYSICIAN Family Medicine | DX: M25.511 Pain in right shoulder (principal); S33.8XXD Sprain of other parts of lumbar spine and pelvis, subsequent encounter; Z73.6 Limitation of activities due to disability; M62.81 Muscle weakness (generalized); R26.2 Difficulty in walking, not elsewhere classified; R26.89 Other abnormalities of gait and mobility | CPT/HCPCS: 97110; 97161 ==

== ENCOUNTER → 2025-07-04 06:48 | Outpatient (REF) | payer OTHER, SELFPAY | LOC: HWWDC 06:48 | PROVIDERS: ATTENDING PHYSICIAN Obstetrics & Gynecology; FAMILY PHYSICIAN Family Medicine | DX: Z12.31 Encounter for screening mammogram for malignant neoplasm of breast (principal) | CPT/HCPCS: 77063; 77067 ==

== ENCOUNTER → 2025-07-12 11:41 | Outpatient (REF) | payer OTHER, SELFPAY ==
[2025-07-12 15:29] LABS: INR 3.30; PT 33.8 Sec (11.4-14.6)
== END ==
LOC: HWLAB 11:41
PROVIDERS: ATTENDING PHYSICIAN Internal Medicine Cardiovascular Disease; FAMILY PHYSICIAN Family Medicine
DX: Z95.2 Presence of prosthetic heart valve (principal); I48.0 Paroxysmal atrial fibrillation
CPT/HCPCS: 36415; 85610

== ENCOUNTER → 2025-07-20 09:16 | Outpatient (REF) | payer OTHER, SELFPAY ==
[2025-07-20 12:40] LABS: INR 5.44; PT 48.7 Sec (11.4-14.6)
== END ==
LOC: HWRCS 09:16
PROVIDERS: ATTENDING PHYSICIAN Internal Medicine Cardiovascular Disease; FAMILY PHYSICIAN Family Medicine
DX: Z95.0 Presence of cardiac pacemaker (principal); I48.21 Permanent atrial fibrillation; Z95.4 Presence of other heart-valve replacement; Z95.2 Presence of prosthetic heart valve; I25.10 Atherosclerotic heart disease of native coronary artery without angina pectoris
CPT/HCPCS: 36415; 85610; 93306

== ENCOUNTER 2025-07-20 10:11 | Outpatient (RCR) | payer OTHER, SELFPAY | END 2025-07-20 23:59 | disposition home or self-care (01) | LOC: RPT 10:11 | PROVIDERS: ATTENDING PHYSICIAN Family Medicine | DX: M25.511 Pain in right shoulder (principal); S33.8XXD Sprain of other parts of lumbar spine and pelvis, subsequent encounter; Z73.6 Limitation of activities due to disability; M62.81 Muscle weakness (generalized); R26.2 Difficulty in walking, not elsewhere classified; R26.89 Other abnormalities of gait and mobility | CPT/HCPCS: 97110; 97112 ==

== ENCOUNTER → 2025-07-23 08:38 | Outpatient (REF) | payer OTHER, SELFPAY ==
[2025-07-23 11:51] LABS: INR 2.80; PT 29.5 Sec (11.4-14.6)
== END ==
LOC: HWLAB 08:38
PROVIDERS: ATTENDING PHYSICIAN Internal Medicine Cardiovascular Disease; FAMILY PHYSICIAN Family Medicine
DX: I48.0 Paroxysmal atrial fibrillation (principal); Z95.2 Presence of prosthetic heart valve
CPT/HCPCS: 36415; 85610

== ENCOUNTER → 2025-08-10 06:40 | Outpatient (REF) | payer OTHER, SELFPAY ==
[2025-08-10 09:45] LABS: INR 3.32; PT 33.5 Sec (11.4-14.6)
[2025-08-10 10:37] LABS: ALT (SGPT) 41 U/L (0-35); AST (SGOT) 34 U/L (14-36); HDL Cholesterol 56 mg/dl; LDL Cholesterol, Calculated 143 mg/dl; Very Low Density Lipoprotein 25 mg/dl (0-30)
== END ==
LOC: HWLAB 06:40
PROVIDERS: ATTENDING PHYSICIAN Internal Medicine Cardiovascular Disease; FAMILY PHYSICIAN Family Medicine
DX: Z95.2 Presence of prosthetic heart valve (principal); E78.2 Mixed hyperlipidemia
CPT/HCPCS: 36415; 80061; 84450; 84460; 85610

== ENCOUNTER 2025-08-20 12:28 | Outpatient (RCR) | payer OTHER, SELFPAY | END 2025-08-20 23:59 | disposition home or self-care (01) | LOC: RPT 12:28 | PROVIDERS: ATTENDING PHYSICIAN Family Medicine | DX: M25.511 Pain in right shoulder (principal); S33.8XXD Sprain of other parts of lumbar spine and pelvis, subsequent encounter; Z73.6 Limitation of activities due to disability; M62.81 Muscle weakness (generalized); R26.2 Difficulty in walking, not elsewhere classified; R26.89 Other abnormalities of gait and mobility | CPT/HCPCS: 97110; 97112 ==

== ENCOUNTER → 2025-09-14 11:55 | Outpatient (REF) | payer OTHER, SELFPAY ==
[2025-09-14 12:55] LABS: INR 2.50; PT 27.2 Sec (11.4-14.6)
== END ==
LOC: REG 11:55
PROVIDERS: ATTENDING PHYSICIAN Internal Medicine Cardiovascular Disease; FAMILY PHYSICIAN Family Medicine
DX: Z95.2 Presence of prosthetic heart valve (principal); I48.0 Paroxysmal atrial fibrillation
CPT/HCPCS: 36415; 85610

== ENCOUNTER → 2025-10-02 12:51 | Outpatient (REF) | payer OTHER, SELFPAY ==
[2025-10-02 16:11] LABS: INR 3.22; PT 33.1 Sec (11.4-14.6)
== END ==
LOC: HWLAB 12:51
PROVIDERS: ATTENDING PHYSICIAN Internal Medicine Cardiovascular Disease; FAMILY PHYSICIAN Student in an Organized Health Care Education/Training Program
DX: Z95.2 Presence of prosthetic heart valve (principal); I48.0 Paroxysmal atrial fibrillation
CPT/HCPCS: 36415; 85610